=== PATIENT | female | born 1945 | race Caucasian/White ===

== ENCOUNTER 2017-10-14 06:05 | Outpatient (CLI) | payer MEDICARE, BC ==
[~2017-10-14] VITALS: Ht 162.6 cm; Wt 77.3 kg
[2017-10-14] MEDS ORDERED: GLUCOTROL 5 MG T5 MG PO (06:48)
[2017-10-14] MEDS ORDERED: SYNTHROID137 MCG PO (06:48)
[2017-10-14] MEDS ORDERED: DYAZIDE 37.5/251 CAP PO (06:48)
[2017-10-14] MEDS ORDERED: CELEXA20 MG PO (06:48)
[2017-10-14] MEDS ORDERED: NORVASC5 MG PO (06:49)
[2017-10-14] MEDS ORDERED: PLAVIX75 MG PO (06:49)
[2017-10-14] MEDS ORDERED: ZYLOPRIM300 MG PO (06:49)
[2017-10-14] MEDS ORDERED: ULTRAM50 MG PO (06:50)
[2017-10-14] MEDS ORDERED: METOPROLOL TART25 MG PO (06:50)
[2017-10-14 06:56] VITALS: BP 109/48; Ht 162.6 cm; Wt 77.3 kg
[2017-10-14 07:29] LABS: BASOPHILS 0.5 % (0-2); EOSINOPHILS 7.8 % (0-7); HEMATOCRIT 30.7 % (36.0-48.0); HEMOGLOBIN 9.5 g/dL (12-16); IMMATURE GRANULOCYTES 0.3 % (0-5); LYMPHOCYTES 17.9 % (15-50); MCH 29.7 pg (26.0-34.0); MCHC 30.9 g/dL (31.0-37.0); MCV 95.9 fL (80.0-100.0); MEAN PLATELET VOLUME 9.9 fL (7.4-10.4); MONOCYTES 7.1 % (2-11); NEUTROPHILS 66.4 % (40-80); PLATELET COUNT 346 10x3/uL (130-400); RDW 15.8 % (11.5-14.5); WBC 11.7 10x3/uL (4.8-10.8)
[2017-10-14 07:36] LABS: APTT 24.3 SECONDS (22.8-39.4); CALCIUM 9.3 mg/dL (8.5-10.1); CARBON DIOXIDE 22.3 mmol/L (21.0-32.0); CREATININE - SERUM 1.1 mg/dL (0.6-1.3); INR 0.94 (0.85-1.17); PROTIME 12.4 SECONDS (11.6-15.0)
[2017-10-14 07:44] LABS: ANION GAP 14.7 mmol/L (8-16)
--- NOTE | 2017-10-14 10:00 | NUR ---
0850 RETURNED TO 2502 BY BED, DROWSY, SON AT SIDE, DRESSING CDI, PLACED ON MONITOR, REQUESTED AND SERVED COFFEE AND WATER. TIME FRAME FOR POST STAY GIVEN. BEDREST WITH BRP EXPLAINED. 0905 FL DIET SERVED, DRESSING CDI SON CONTS. AT SIDE
== END 2017-10-14 13:10 | disposition home or self-care (01) ==
LOC: D.SP 06:05
PROVIDERS: Radiology Diagnostic Radiology
DX: D64.9 Anemia, unspecified (principal)

== ENCOUNTER 2018-11-26 09:30 | Day surgery (SDC) | payer MEDICARE, BC ==
[~2018-11-26] VITALS: Ht 162.6 cm; Wt 83.5 kg
[~2018-11-26 09:30] MED LIST: ASPIRIN325 MG PO; CELEXA20 MG PO; DYAZIDE 37.5/251 CAP PO; GABAPENTIN100 MG PO; GLUCOTROL 5 MG T5 MG PO; METOPROLOL TART25 MG PO; NAPROXEN250 MG PO; NORVASC5 MG PO; PLAVIX75 MG PO; SYNTHROID137 MCG PO; ULTRAM50 MG PO; ZYLOPRIM300 MG PO
[2018-11-26 10:03] LABS: HEMATOCRIT 36.5 % (36.0-48.0); HEMOGLOBIN 11.7 g/dL (12-16); MCH 30.1 pg (26.0-34.0); MCHC 32.1 g/dL (31.0-37.0); MCV 93.8 fL (80.0-100.0); MEAN PLATELET VOLUME 9.9 fL (7.4-10.4); RBC 3.89 10x6/uL (4.00-5.40); RDW 15.6 % (11.5-14.5); WBC 11.4 10x3/uL (4.8-10.8)
[2018-11-26 10:09] LABS: ANION GAP 12.8 mmol/L (8-16); CALCIUM 9.6 mg/dL (8.5-10.1); CARBON DIOXIDE 27.4 mmol/L (21.0-32.0); CREATININE - SERUM 1.6 mg/dL (0.6-1.3); POTASSIUM - SERUM 4.2 mmol/L (3.5-5.1)
[2018-11-26] MEDS ORDERED: LEVO-T25 MCG PO (10:19)
[2018-11-26] MEDS ORDERED: MELATONIN5 MG PO (10:20)
[2018-11-26 10:22] VITALS: BP 130/58; Ht 162.6 cm; Wt 83.5 kg
--- NOTE | 2018-11-26 14:44 | NUR ---
DISCHARGED INSTRUCTIONS REVIEWED WITH PT AT THIS TIME, PT VERBALIZES UNDERSTANDING. IV REMOVED AT THIS TIME INTACT, NO REDNESS AND SWELLING AT SITE. -
--- NOTE | 2018-11-26 15:08 | NUR ---
UPON STANDING AND GETTING INTO WHEELCHAIR TO LEAVE UNIT, PT BEGAN TO HAVE SMALL AMOUNT OF BLOOD COMING FROM DRESSING. DRESSING REINFORCED AND BLEEDING CONTROLLED AT SITE. PT EDUCATED ON IMPORTANCE OF CALLING DR JONES OFFICE IF BLOOD "SOAKES THROUGH REINFORCED DRESSIGN."
--- NOTE | 2018-11-26 15:10 | NUR ---
PT LEFT UNIT IN WHEELCHAIR AT 1507.
--- NOTE | 2018-12-02 19:42 | OP ---
PATIENT NAME: CHIQUITA GIBBONS MEDICAL RECORD: [id number] :47 LOCATION:[facility] ADMISSION DATE: SURGEON: LUKAS LANGFORD DATE OF OPERATION: 11/26/2018 SURGEON: Lukas Langford DPM PREOPERATIVE DIAGNOSIS: Hallux abductovalgus, right foot. POSTOPERATIVE DIAGNOSIS: Hallux abductovalgus, right foot. PROCEDURE: Jethro-Bo bunionectomy, right foot. ANESTHESIA: Local with monitored anesthesia care. HEMOSTASIS: Pneumatic ankle tourniquet inflated to 250 mmHg. ESTIMATED BLOOD LOSS: Minimal. MATERIALS: One 2.5-mm headless [employer] screw and one 9-mm quick staple, both from [employer]. INJECTABLES: A 20 cc of 0.5% bupivacaine plain. The patient has long-standing history of pain associated with a bunion deformity. She has tried wider shoes to no avail. She is here today for surgical correction of this chronically painful condition. We again reviewed the risks and benefits of the procedure. Complications were discussed. All questions were answered. She was appropriately consented for the above-mentioned procedure. DESCRIPTION OF PROCEDURE: The patient was brought in the operating room and placed on the operating table in supine position. A time-out was called with Dr. Langford, who identified the patient, the surgical site, and the surgery to be performed. Once appropriate anesthesia was obtained, the foot was prepped and draped in the usual aseptic manner. The pneumatic ankle tourniquet was inflated to 250 mmHg on the well-padded right ankle. Attention was directed to the dorsal aspect of the first metatarsophalangeal joint, where a 6-cm curvilinear incision was made just medial to the extensor hallucis longus tendon. This incision was carried deep through soft tissue with care being taken to retract all vital neurovascular structures. All bleeders were cauterized along the way. Through this incision, the first intermetatarsal space was entered utilizing both sharp and blunt dissection. The conjoined tendon of the adductor hallucis muscle was noted at the base of the proximal phalanx and it was sharply transected at this level. Attention was then directed further proximally to the level of the fibular sesamoidal ligament. This ligament was also sharply transected. Attention was then redirected to the dorsal aspect of the first metatarsophalangeal joint. The periosteum was reflected from the head of the first metatarsal and the base of the proximal phalanx, thus exposing the first metatarsophalangeal joint and the hypertrophied medial eminence of the first metatarsal. Utilizing a sagittal saw, the hypertrophied medial eminence was resected. Utilizing sagittal saw, a V-shaped OPERATIVE REPORT [id number] CHIQUITA GIBBONS osteotomy was created in the head of the first metatarsal. This was a [id number] osteotomy with the apex oriented distally. The capital fragment was shifted laterally and impacted upon the first metatarsal shaft. Next, utilizing manufacturing systems engineer's recommended technique, one 2.5-mm screw was placed across the osteotomy. Excellent compression was noted across the osteotomy after introduction of the screw. All overhanging bone from the medial aspect of the first metatarsal shaft was removed with the sagittal saw. Attention was then directed to the base of the proximal phalanx of the great toe, where an osteotomy was created. This was a V-shaped osteotomy with the apex oriented medially. The osteotomy was then reduced and one 9-mm staple was placed across the osteotomy. The surgical site was then irrigated with copious amounts of normal sterile saline via bulb syringe. Any remaining sharp bony edges were removed with a rongeur. The surgical site was then irrigated again with copious amounts of normal sterile saline via bulb syringe. The periosteum was reapproximated and coapted using 3-0 Vicryl. The subcutaneous was reapproximated and coapted using 4-0 Vicryl. The skin was reapproximated and coapted using 4-0 nylon. A dressing consisting of Xeroform, 4 x 4's, Kerlix, and an Dimitry bandage was applied to the right foot. The pneumatic ankle tourniquet was deflated and cap refill time was immediate to all digits of the right foot. The patient tolerated the procedure and the anesthesia well. She left the operating room with vital signs stable and capillary refill time intact. The patient was discharged home with instructions to ice and elevate the right foot. She was dispensed a boot to help further offload the foot. She has my cell phone number for any after hour difficulties. She will follow up with us in the office next week. There were no complications with this procedure. TRANSINT:[id number] Voice Confirmation ID: [id number] DOCUMENT ID: [id number] LUKAS LANGFORD at 1941 CC: [id number] DICTATION DATE: 11/26/18 1352 SHOPPER: 11/26/18 1816 [facility] 11/26/18 [place] [id number] [place] [id number]
== END 2018-11-26 15:07 | disposition home or self-care (01) ==
LOC: D.OPS 09:30 → D.PAN 11:30 → D.OPS 15:07
PROVIDERS: Anesthesiology
DX: M20.11 Hallux valgus (acquired), right foot (principal); Z01.812 Encounter for preprocedural laboratory examination